=== PATIENT | female | born 1950 | race Caucasian/White ===

== ENCOUNTER 2017-11-07 09:02 | Outpatient (CLI) | payer MEDICARE ==
[~2017-11-07 09:02] MED LIST: Iopamidol 370 76% 100 ML VIAL ONE
[2017-11-07 11:18] LABS: Estimated GFR-MDRD - POC Greater than 90
--- NOTE | 2017-11-07 13:33 | CT ---
CT ABDOMEN WITH CONTRAST CT PELVIS WITH CONTRAST: DATE: 11-07-17 TIME: 11:29 a.m. HISTORY: 66-year-old female with epigastric pain for two months; diarrhea R19.7; abdominal bloating R14.0. COMPARISON: None. TECHNIQUE: IV injection of iodinated contrast media: 100 ml Isovue 370 Oral contrast media: 90 ml of Redi-Cat II. FINDINGS: There is an approximately 2.8 x 1.3 x 3 cm soft tissue density mass located anterior and slightly to the left of the left pubic body and superior pubic ramus. This mass has slightly irregular margins an d is suspicious for malignancy. No destruction of adjacent bone. There is no definite iliac chain, retroperitoneal, clare hepatis, or mesenteric, lymphadenopathy. Mil d atherosclerotic calcification without aneurysm, of the abdominal aorta, and to a greater degree the iliac arteries. No major abnormality identified involving urinary bladder. Bilateral kidneys, pancre as, adrenals, liver, and spleen are normal. No small bowel dilatation. No signs of acute colonic dive rticulitis. Large volume of stool expanding the rectum. No free fluid within the abdominal cavity or pelvic cavity. Lung bases are grossly clear. Normal appendix. IMPRESSION: 1. Soft tissue density mass located anterior and superficial to the left, pubic bone, suspicious for neoplasm. 2. Increased stool in the rectum which could perhaps represents constipation. 3. No other significant findings within the abdominal cavity or pelvic cavity. Code T JN R POS: REFUGIO
== END 2017-11-07 09:03 | disposition home or self-care (01) ==
LOC: SCSCT 09:02
PROVIDERS: ATTEND Family Medicine
DX: R19.7 Diarrhea, unspecified (principal); R14.0 Abdominal distension (gaseous); M89.9 Disorder of bone, unspecified
CPT/HCPCS: 74177

== ENCOUNTER → 2017-12-26 | Day surgery (SDC) | payer MEDICARE ==
[2017-12-25 08:50] VITALS: BMI 22.6
[~2017-12-26] MED LIST changes: +Bupivacaine/Epinephrine 0.25% 30 ML VIAL ONE; +CEFAZOLIN/Water 2 GM/20 ML SYRINGE ONE; +Esmolol 100 MG/10 ML VIAL ONE; +Fentanyl 250 MCG/5 ML VIAL ONE; -Iopamidol 370 76% 100 ML VIAL ONE; +Ketorolac Tromethamine 30 MG/ML VIAL ONE; +Lidocaine 1% PF 5 ML VIAL ONE; +Mag-Al 1200 mg/1200 mg/30 ML UDCUP PO SCH; +Ondansetron HCl/PF 4 MG/2 ML Vial ONE; +Propofol 200 MG/20 ML VIAL ONE; +traMADol HCl 50 MG TAB ONE
[2017-12-26 07:39] LABS: Hemoglobin 13.6 g/dL (12.0-16.0); Mean Corpuscular HGB CONC 32.5 g/dL (32.0-36.0); Mean Corpuscular Hemoglobin 30.5 pg (27.0-31.0); Mean Platelet Volume 7.8 fL (7.4-10.4); Platelet Count 259 thou/uL (130-400); Red Blood Cell (RBC) Count 4.46 mill/uL (4.20-5.40); White Blood Cell (WBC) Count 5.9 thou/uL (4.8-10.8)
--- NOTE | 2017-12-26 07:50 | HP ---
CHIEF COMPLAINT: Left groin mass. HISTORY OF PRESENT ILLNESS: The patient is a 66-year-old female. She noted a palpable mass in her l eft groin near the left pubic tubercle in August. She denied significant discomfort from this and is unaware of any significant change since she first noticed this. A CT scan of this area was obtain ed in October revealing a 2.8 x 1.3 x 3.0 cm soft tissue mass with irregular margins located just to the left of the pubic body. I saw her in my office and performed an ultrasound guided biopsy on this . This revealed a benign spindle cell proliferation. She tolerated the biopsy well. In the interim , she notes no change or problems. PAST MEDICAL HISTORY: Hypertension, gastroesophageal reflux disease. PAST SURGICAL HISTORY: , bilateral breast biopsies, cataract surgery. CURRENT MEDICATIONS: Lisinopril, pantoprazole, Xyzal, and vitamin supplements. ALLERGIES: ARICEPT. PERSONAL/SOCIAL HISTORY: She is and her is present at bedside. She has children. S he denies tobacco or alcohol use. REVIEW OF SYSTEMS: Otherwise, unremarkable. FAMILY HISTORY: Noncontributory. PHYSICAL EXAMINATION: VITAL SIGNS: Weight is 121 pounds, temperature 99, pulse is 69, blood pressure 145/68. GENERAL: Karthikeyan delgado is well-developed, well-nourished, pleasant white female in no acute distress. She is alert and or iented x3. HEENT: Unremarkable. NECK: Supple, without mass or tenderness. LUNGS: Clear to auscultation throughout. CARDIAC: Regular rate and rhythm. ABDOMEN: Soft, nontender, nondistended. In her lower abdomen just superior and lateral to the left pubic tubercle there is a palpable firm mass that appeared to be 2-3 cm in size. There is no focal t enderness associated with this. 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 Final testing was not performed on this at the time of the biopsy as excision was miguel mmended. Since it does appear to be a benign proliferation I would not plan on obtaining wide margin s. I have discussed the operation in detail with the patient as well as potential risks. She unders tands and agrees to proceed with excision of this mass at this time.
[2017-12-26 07:59] LABS: Anion Gap 13 mmol/L (10-20); BUN (Urea Nitrogen) 14 mg/dL (9.8-20.1); Calc. Creatinine Clearance 62 mL/min (70-130); Calcium 9.8 mg/dL (7.8-10.44); Carbon Dioxide 26 mmol/L (23-31); Chloride 108 mmol/L (98-107); Estimated GFR-MDRD 82; Glucose 86 mg/dL (80-115); Potassium 3.8 mmol/L (3.5-5.1); Sodium 143 mmol/L (136-145)
--- NOTE | 2017-12-26 11:57 | OP ---
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 POSTOPERATIVE DIAGNOSIS: Left pelvic soft tissue tumor. OPERATION PERFORMED: Ultrasound guided excision of 4 cm deep (subfascial) pelvic mass with abdominal wall reconstruction. SURGEON: Dr. Raul Ortega ANESTHESIA: General endotracheal. INDICATIONS: The patient is a 67-year-old white female. She presented with a palpable mass in her l eft groin near her left pubic tubercle. She underwent biopsy which revealed that this is a benign st romal tumor. I therefore recommended excision. OPERATIVE PROCEDURE IN DETAIL: Informed consent was obtained. The patient was taken to the operatin g room where general anesthesia obtained with the patient in supine position. Left groin was trimmed of hair, prepped with ChloraPrep, and draped in sterile fashion. Ultrasound was utilized to identif y the area of the hypoechoic lesion. This was marked on the skin in a grid fashion. Using these mar kings, an incision was fashioned overlying the mass after infiltrating local anesthetic using 0.25% M arcaine with epinephrine. Dissection was carried through skin and subcutaneous tissue. Dissection w as then carried through the superficial fascia down onto the mass. It was easily palpable and I diss ected this circumferentially primarily using visual and palpable cues. It was dissected immediately off the underlying pubic tubercle. Some of the abdominal wall had to be excised in continuity with t his. It was removed intact. The final investment was lateral and may have been part of the round li gament and its vasculature. This was suture ligated as it was removed. The specimen was passed off the field. Meticulous hemostasis obtained within wound using electrocautery. There was clearly a fa scial defect where the mass had been removed. I was able to identify and grasp the muscular layers s uperiorly and these were close to the Philippe's ligament and muscular layers inferiorly in an attempt to reconstruct the abdominal wall in this area. This was done with 2 interrupted sutures of 2-0 Prol benjy. It was difficult to discern the appropriate muscular layers after the mass had been excised. T he remainder of the wound was closed in layers with 3-0 and 4-0 Monocryl and Dermabond was placed ext ernally. There were no complications. The patient tolerated the procedure well and was taken to rec overy in stable condition.
[2017-12-26 12:24] LABS: CKMB 1.2 ng/mL (0-6.6); Troponin I Less than 0.010 ng/mL (< 0.028)
[2017-12-26 15:52] LABS: CKMB 1.3 ng/mL (0-6.6); Troponin I Less than 0.010 ng/mL (< 0.028)
--- NOTE | 2017-12-26 20:28 | CON ---
DATE OF CONSULTATION: 12/26/2017 CARDIOLOGY CONSULTATION REASON FOR CONSULTATION: Atrial fibrillation, rapid ventricular response. HISTORY OF PRESENT ILLNESS: Ms. Rosales is a very pleasant 67-year-old white female who comes to the hospital for a planned excision of left groin mass. She had this performed earlier today successfull y without any complications. She came to the PACU area and was found to have a sudden onset of tachy cardia. EKG was performed that showed atrial fibrillation RVR, heart rate in the 150s. I was called for evaluation of this. Right before I walked in, she had a dose of IV metoprolol given and her hea rt rate actually went down and eventually converted back to sinus rhythm. On my evaluation, she is d oing just fine. She denies any chest pain, tightness or pressure. She did not feel any palpitations or anything while she was in atrial fibrillation. She states she felt just fine, did not even feel lightheaded at all. She tells me, she has never been told she has that before. She has been in the hospital for chest pains in the past and was told she had reflux. PAST MEDICAL HISTORY: Includes, 1. Hypertension. 2. Gastroesophageal reflux disease. 3. Left groin mass, which was benign and excised today. PAST SURGICAL HISTORY: 1. . 2. Bilateral breast biopsy. 3. Cataract surgery. 4. Left renal mass excision earlier today. OUTPATIENT MEDICATIONS: Include, 1. Lisinopril. 2. Pantoprazole. 3. Xyzal. 4. Vitamin supplements. ALLERGIES: ARICEPT. SOCIAL HISTORY: No alcohol, tobacco or drugs. FAMILY HISTORY: Noncontributory. REVIEW OF SYSTEMS: Twelve point review of systems was done and is all negative unless stated in the history of present illness. PHYSICAL EXAMINATION: VITAL SIGNS: Temperature 98.2, pulse 78, respiration rate 16, satting 98% on room air. Blood pressu re 128/62. GENERAL: Awake, alert, oriented x3, in no distress. HEENT: Normocephalic, atraumatic. NECK: Supple. LUNGS: Lungs are clear. CARDIOVASCULAR: S1 and S2. No S3 or S4. No murmurs or rubs. ABDOMEN: Soft, positive bowel sounds. EXTREMITIES: No edema. SKIN: Warm and dry. LABORATORY WORK: Reviewed. CBC was unremarkable. Metabolic profile was unremarkable. EKG was reviewed, AFib, RVR with ST depression suggestive of ischemia globally anterior and inferior leads. Repeat EKG in sinus rhythm with nonspecific ST changes. ASSESSMENT AND PLAN: Atrial fibrillation with rapid ventricular response: Currently in sinus most l ikely paroxysmal and related to the postoperative state. She did not have any Abdominal Surgery or C ardiac or Vascular Surgery to explain this is an increased vagal tone. She may have paroxysmal atria l fibrillation. At this point, her CHADS-VASc score is 3 with high blood pressure, female and age ab ove 63. That would indicate that she would be a candidate for full anticoagulation. She just had hardin rgery today, so we would not be able to start that at this time. We will recommend, she will be on a baby aspirin daily, she tells me, she is already taking this and we will plan on seeing her in 2 wee ks in the office, at that point, we will discuss where to go from here. We will get an echocardiogra m to make sure left ventricular function is normal before sending her home and a set of troponins jus t to make sure that she did not have any cardiac ischemia with this event. Thank you for letting us participate in the care of your patient. We will plan on following in 2 wee ks after discharge.
--- NOTE | 2018-01-02 19:56 | EKG ---
Test Reason : PREOP Blood Pressure : / mmHG Vent. Rate : 069 BPM Atrial Rate : 069 BPM P-R Int : 124 ms QRS Dur : 086 ms QT Int : 366 ms P-R-T Axes : 065 059 070 degrees QTc Int : 392 ms Normal sinus rhythm ST abnormality, possible digitalis effect Abnormal ECG No previous ECGs available Confirmed by VERONIKA MOODY (2) on 01/02/2018 7:55:48 PM Referred By: ZENAIDA Confirmed By:VERONIKA MOODY
--- NOTE | 2018-01-02 19:58 | EKG ---
Test Reason : CARDIOVERSION/ 20MG ESMOLOL IV PUSH Blood Pressure : / mmHG Vent. Rate : 057 BPM Atrial Rate : 057 BPM P-R Int : 124 ms QRS Dur : 080 ms QT Int : 342 ms P-R-T Axes : 064 063 089 degrees QTc Int : 332 ms Sinus bradycardia Nonspecific ST abnormality Abnormal ECG When compared with ECG of 26-DEC-2017 10:57, (Unconfirmed) Previous ECG has undetermined rhythm, needs review ST less depressed in Anterior leads T wave inversion no longer evident in Inferior leads T wave inversion no longer evident in Anterolateral leads Confirmed by VERONIKA MOODY (2) on 01/02/2018 7:58:00 PM Referred By: DANILO Confirmed By:VERONIKA MOODY
--- NOTE | 2018-01-02 19:58 | EKG ---
Test Reason : TACHYCARIA VS AFIB Blood Pressure : / mmHG Vent. Rate : 154 BPM Atrial Rate : 156 BPM P-R Int : 000 ms QRS Dur : 092 ms QT Int : 256 ms P-R-T Axes : 000 058 226 degrees QTc Int : 410 ms Atrial fibrillation with fast ventricular response Marked ST abnormality, possible inferior subendocardial injury Marked ST abnormality, possible anterior subendocardial injury Abnormal ECG When compared with ECG of 26-DEC-2017 07:45, (Unconfirmed) Current undetermined rhythm precludes rhythm comparison, needs review ST now depressed in Inferior leads ST now depressed in Anterolateral leads T wave inversion now evident in Inferior leads T wave inversion now evident in Anterolateral leads Confirmed by VERONIKA MOODY (2) on 01/02/2018 7:57:51 PM Referred By: DANILO Confirmed By:VERONIKA MOODY
== END ==
LOC: SDC 06:47
PROVIDERS: ATTEND Specialist
PROC: 0JBC0ZZ Excision of Pelvic Region Subcutaneous Tissue and Fascia, Open Approach (ICD-10-PCS; principal; 2017-12-26)
DX: D21.5 Benign neoplasm of connective and other soft tissue of pelvis (principal); I10 Essential (primary) hypertension; K21.9 Gastro-esophageal reflux disease without esophagitis; Z79.899 Other long term (current) drug therapy; Z88.8 Allergy status to other drugs, medicaments and biological substances; Z98.890 Other specified postprocedural states
CPT/HCPCS: 36415; 80048; 82553; 84484; 85027; 88305; 88341; 88342; 93005; 93010; 93306; 96374; J0131; J1885; J2001; J2405; J2704; J3010

== ENCOUNTER 2017-12-27 01:10 | Emergency (ER) | payer MEDICARE ==
[2017-12-27] MEDS ORDERED: traMADol HCl 50 MG TAB ONE (02:06)
[2017-12-27] MEDS ORDERED: Metoprolol Tartrate 25 MG TAB ONE (02:07)
== END 2017-12-27 03:12 | disposition home or self-care (01) ==
LOC: ERS 01:10
DX: I48.0 Paroxysmal atrial fibrillation (principal); K21.9 Gastro-esophageal reflux disease without esophagitis; I10 Essential (primary) hypertension; Z79.899 Other long term (current) drug therapy
CPT/HCPCS: 93005